=== PATIENT | male | born 1950 | race Caucasian/White ===

== ENCOUNTER → 2016-08-18 | Outpatient (CLI) | payer BC ==
[~2016-08-18] MED LIST: ACET-2178 PO; AMIKACIN IV; ASC250 PO; COR3 PO; DILT30TA38 PO; DOCU-138 PO; GABA600T PO; INSLIS SUBCUT; LACT10SO7 PO; LEVVL SUBCUT; LIDOCAINE HCL 1% 20ML VIAL (Pyxis) INJ ONE; Multivitamins,Ther W-Minerals PO; OR220 PO; SODIUM BICARBONATE 4.2% 5 MEQ/10 ML DISP.SYRIN IV ONE; TAMS0.4C31 PO; XAR15 PO
== END | disposition home or self-care (01) ==
LOC: RAD 14:43
PROVIDERS: ATTEND Internal Medicine Nephrology
DX: K65.1 Peritoneal abscess (principal); L02.211 Cutaneous abscess of abdominal wall
CPT/HCPCS: 77012; C1769; J3490

== ENCOUNTER 2017-02-21 11:45 | Inpatient (IN) | payer MEDICARE, BC ==
[~2017-02-21] VITALS: Ht 177.8 cm; Wt 111.6 kg
[~2017-02-21 11:45] MED LIST changes: -LIDOCAINE HCL 1% 20ML VIAL (Pyxis) INJ ONE; -SODIUM BICARBONATE 4.2% 5 MEQ/10 ML DISP.SYRIN IV ONE
[2017-02-21] MEDS ORDERED: SODIUM CHLORIDE 0.9% 500 ML IV ONE (13:36)
[2017-02-21 14:35] LABS: BASOPHILS % 0.5 % (0.0-2.0); EOSINOPHILS % 3.1 % (0.0-5.0); HEMATOCRIT. 34.3 % (42.0-52.0); HEMOGLOBIN. 11.1 g/dL (14.0-18.0); LYMPHOCYTES % 31.9 % (20.0-50.0); MEAN CORPUSCULAR HEMOGLOBIN 27.8 pg (28.0-32.0); MEAN CORPUSCULAR VOLUME 85.6 fL (80.0-94.0); MEAN PLATELET VOLUME 6.1 fl (7.4-10.4); NEUTROPHILS % 57.5 % (40.0-76.0); PLATELET 637 x1000/uL (130-400); RED BLOOD CELL COUNT 4.01 mill/uL (4.7-6.1); RED CELL DISTRIBUTION WIDTH 17.2 % (11.6-14.6)
[2017-02-21 14:38] LABS: GLUCOSE URINE NEGATIVE (NEGATIVE); KETONES URINE NEGATIVE (NEGATIVE); LEUKOCYTE ESTERASE URINE 3+ (NEGATIVE); NITRITE URINE NEGATIVE (NEGATIVE); OCCULT BLOOD URINE 3+ (NEGATIVE); PH URINE 5.5 (4.5-8.0); PROTEIN URINE 2+ (NEGATIVE); SPECIFIC GRAVITY URINE 1.015 (1.005-1.030); UROBILINOGEN URINE 0.2 E.U./dL (0.2-1.0)
[2017-02-21 14:40] LABS: CLARITY URINE TURBID (CLEAR); COLOR URINE YELLOW (YELLOW)
[2017-02-21] MEDS ORDERED: CEFTRIAXONE 1 G PREMIX 50 ML IV ONE (14:45)
[2017-02-21 14:50] LABS: CARBON DIOXIDE 12 mEq/L (21-32); CHLORIDE 102 mEq/L (98-107); CREATINE KINASE 16 IU/L (39-308); TROPONIN I < 0.02 ng/mL (0.00-0.04)
[2017-02-21 14:51] LABS: CREATINE KINASE MB FRACTION 0.7 ng/mL (0.5-3.6)
[2017-02-21] MEDS ORDERED: DEXTROSE 50% WATER 50ML SYRINGE IV ONE (15:00)
[2017-02-21] MEDS ORDERED: SODIUM BICARBONATE 8.4% 1 MEQ/ML 50ML SYR IV ONE (15:00)
[2017-02-21] MEDS ORDERED: INSULIN REGULAR (HUMULIN R) 300UNITS/3ML IV ONE (15:00)
[2017-02-21] MEDS ORDERED: CALCIUM CHLORIDE 1GM/10ML SYR IV ONE (15:00)
[2017-02-21 15:16] LABS: INR 1.2; PARTIAL THROMBOPLASTIN TIME 30.8 sec (23.4-31.0)
[2017-02-21 15:39] LABS: BG BASE EXCESS -13.6 mmol/L (-2.0-2.0); BG CARBOXYHEMOGLOBIN 0.3 % (0.5-1.5); BG DEOXYHEMOGLOBIN 2.5 % (0.0-5.0); BG FRACTION INSPIRED OXYGEN 21; BG HCO3 ACT 12.3 mmol/L (22.0-26.0); BG METHEMOGLOBIN 0.1 % (0.0-1.5); BG OXYGEN SATURATION 97.5 % (92.0-98.5); BG OXYHEMOGLOBIN 97.1 % (94.0-97.0); BG PCO2 29.2 mmHg (35.0-45.0); BG PH 7.243 (7.350-7.450); BG PO2 98.7 mmHg (75.0-100.0); BG SAMPLE SITE LEFT BRACHIAL; BG TOTAL HEMOGLOBIN 11.6 g/dL (12.0-18.0); BG VENT MODE ROOM AIR
[2017-02-21] MEDS ORDERED: SODIUM CHLORIDE 0.9% 1000ML BAG (SEPSIS BOLUS) IV ONE (15:45)
[2017-02-21 16:00] LABS: PHOSPHORUS 5.1 mg/dL (2.5-4.9)
[2017-02-21 16:13] LABS: AMMONIA 17 uMol/L (<32)
[2017-02-21] MEDS ORDERED: IPRATROPIUM/ALBUTEROL 0.5-3(2.5)MG/3ML NEB INH PRN (16:30)
[2017-02-21] MEDS ORDERED: CLONIDINE 0.1MG TABLET PO PRN (16:30)
[2017-02-21] MEDS ORDERED: ACETAMINOPHEN 325MG TABLET PO PRN (16:30)
[2017-02-21] MEDS ORDERED: HYDROCODONE/ACETAMINOPHEN 5/325MG TABLET PO PRN (16:30)
[2017-02-21] MEDS ORDERED: GUAIFENESIN 200MG/10ML SUGAR FREE UDC PO PRN (16:30)
[2017-02-21] MEDS ORDERED: DOCUSATE SODIUM 100MG CAPSULE PO PRN (16:30)
[2017-02-21] MEDS: SODIUM CHLORIDE 0.9% 1,000 ML IV SCH (20:58)
[2017-02-21] MEDS: MORPHINE SULFATE 2 MG/ML CPJ (NOT FOR IM USE) IV PRN (21:10)
[2017-02-21] MEDS: LORAZEPAM 2MG/ML CPJ IV PRN (21:10)
[2017-02-21 22:10] LABS: TOTAL IRON BINDING CAPACITY 234 ug/dL (250-450)
[2017-02-22] VITALS (11 sets, daily range): BP systolic 124–173; BP diastolic 61–85
[2017-02-22] MEDS: SODIUM CHLORIDE 0.9% 1,000 ML IV SCH ×2 (02:30→22:30)
[2017-02-22 07:33] LABS: BASOPHILS % 0.7 % (0.0-2.0); EOSINOPHILS % 6.2 % (0.0-5.0); HEMATOCRIT. 29.4 % (42.0-52.0); HEMOGLOBIN. 9.6 g/dL (14.0-18.0); LYMPHOCYTES % 29.4 % (20.0-50.0); MEAN CORPUSCULAR HEMOGLOBIN 27.4 pg (28.0-32.0); MEAN PLATELET VOLUME 6.1 fl (7.4-10.4); MONOCYTES % 11.6 % (2.0-8.0); NEUTROPHILS % 52.1 % (40.0-76.0); PLATELET 556 x1000/uL (130-400)
[2017-02-22 08:05] LABS: CARBON DIOXIDE 16 mEq/L (21-32); CHLORIDE 110 mEq/L (98-107)
[2017-02-22 08:08] LABS: HDL CHOLESTEROL 39 mg/dL (40-59); LDL CHOLESTEROL 67 mg/dL (5-100)
[2017-02-22] MEDS: AMLODIPINE 10MG TABLET PO SCH (09:02)
[2017-02-22] MEDS: ASPIRIN 81MG EC TABLET PO SCH (09:02)
[2017-02-22] MEDS ORDERED: FLUCONAZOLE IV SCH (13:00)
[2017-02-22] MEDS: CEFTRIAXONE 1 G PREMIX 50 ML IV SCH (14:24)
[2017-02-22] MEDS ORDERED: FLUCONAZOLE 100 MG/50ML BAG 50 ML IV SCH (15:00)
[2017-02-22] MEDS: LORAZEPAM 2MG/ML CPJ IV PRN (20:37)
[2017-02-22] MEDS: ONDANSETRON HCL 4MG/2ML VIAL IV PRN (20:37)
[2017-02-22] MEDS: CLOTRIMAZOLE 1% CREAM 30GM TOP SCH (20:38)
[2017-02-23] VITALS (12 sets, daily range): BP systolic 122–168; BP diastolic 52–99
[2017-02-23] MEDS: DIPHENHYDRAMINE 50MG/ML VIAL IV PRN ×2 (00:43→20:57)
[2017-02-23] MEDS: SODIUM CHLORIDE 0.9% 1,000 ML IV SCH ×3 (08:30→20:44)
[2017-02-23 09:26] LABS: BASOPHILS % 0.6 % (0.0-2.0); HEMATOCRIT. 33.5 % (42.0-52.0); HEMOGLOBIN. 10.9 g/dL (14.0-18.0); LYMPHOCYTES % 18.5 % (20.0-50.0); MEAN CORPUSCULAR HEMOGLOBIN 27.7 pg (28.0-32.0); MEAN CORPUSCULAR VOLUME 84.7 fL (80.0-94.0); MEAN PLATELET VOLUME 5.7 fl (7.4-10.4); MONOCYTES % 10.5 % (2.0-8.0); NEUTROPHILS % 67.4 % (40.0-76.0); PLATELET 619 x1000/uL (130-400); RED BLOOD CELL COUNT 3.95 mill/uL (4.7-6.1); RED CELL DISTRIBUTION WIDTH 17.6 % (11.6-14.6)
[2017-02-23] MEDS: AMLODIPINE 10MG TABLET PO SCH (09:29)
[2017-02-23] MEDS: ASPIRIN 81MG EC TABLET PO SCH (09:29)
[2017-02-23] MEDS: CLOTRIMAZOLE 1% CREAM 30GM TOP SCH ×2 (09:43→21:03)
[2017-02-23 09:50] LABS: CARBON DIOXIDE 18 mEq/L (21-32); CHLORIDE 113 mEq/L (98-107)
[2017-02-23] MEDS: ONDANSETRON HCL 4MG/2ML VIAL IV PRN ×2 (13:20→20:17)
[2017-02-23] MEDS: CEFTRIAXONE 1 G PREMIX 50 ML IV SCH (15:15)
[2017-02-23] MEDS: FLUCONAZOLE 200 MG/100ML BAG 100 ML IV SCH (16:49)
[2017-02-23] MEDS: FAMOTIDINE 20MG/2ML VIAL IV SCH (20:17)
[2017-02-23] MEDS: LORAZEPAM 2MG/ML CPJ IV PRN (22:13)
[2017-02-24] VITALS (10 sets, daily range): BP systolic 121–151; BP diastolic 62–81
[2017-02-24] MEDS: DIPHENHYDRAMINE 50MG/ML VIAL IV PRN ×2 (02:48→20:09)
[2017-02-24] MEDS: LORAZEPAM 2MG/ML CPJ IV PRN ×2 (05:17→19:41)
[2017-02-24] MEDS ORDERED: LIDOCAINE HCL 1% 20ML VIAL (Pyxis) INJ ONE (07:46)
[2017-02-24] MEDS: MORPHINE SULFATE 2 MG/ML CPJ (NOT FOR IM USE) IV PRN ×2 (08:30→20:09)
[2017-02-24] MEDS: FAMOTIDINE 20MG/2ML VIAL IV SCH ×2 (08:45→20:07)
[2017-02-24] MEDS: ASPIRIN 81MG EC TABLET PO SCH (08:55)
[2017-02-24] MEDS: AMLODIPINE 10MG TABLET PO SCH (08:56)
[2017-02-24] MEDS ORDERED: PANTOPRAZOLE SODIUM 40 MG/VIAL IV SCH (09:00)
[2017-02-24] MEDS: CLOTRIMAZOLE 1% CREAM 30GM TOP SCH ×2 (09:04→20:55)
[2017-02-24] MEDS: SODIUM CHLORIDE 0.9% 1,000 ML IV SCH (10:11)
[2017-02-24] MEDS: CEFTRIAXONE 1 G PREMIX 50 ML IV SCH (15:27)
[2017-02-24] MEDS: FLUCONAZOLE 200 MG/100ML BAG 100 ML IV SCH (16:54)
[2017-02-25] VITALS: BP 137/72
[2017-02-25] MEDS: LORAZEPAM 2MG/ML CPJ IV PRN ×2 (02:48→20:02)
[2017-02-25] MEDS: DIPHENHYDRAMINE 50MG/ML VIAL IV PRN (03:05)
[2017-02-25 04:00] VITALS: BP 149/87
[2017-02-25] MEDS: MORPHINE SULFATE 2 MG/ML CPJ (NOT FOR IM USE) IV PRN (05:07)
[2017-02-25] MEDS: CLOTRIMAZOLE 1% CREAM 30GM TOP SCH ×2 (09:00→21:43)
[2017-02-25] MEDS: AMLODIPINE 10MG TABLET PO SCH (09:00)
[2017-02-25] MEDS: FAMOTIDINE 20MG/2ML VIAL IV SCH ×2 (09:00→20:14)
[2017-02-25] MEDS: ASPIRIN 81MG EC TABLET PO SCH (09:00)
[2017-02-25 12:00] VITALS: BP 121/64
[2017-02-25] MEDS: CEFTRIAXONE 1 G PREMIX 50 ML IV SCH (14:30)
[2017-02-25 16:00] VITALS: BP 132/74
[2017-02-25] MEDS: FLUCONAZOLE 200 MG/100ML BAG 100 ML IV SCH (17:01)
[2017-02-25 20:00] VITALS: BP 142/82
[2017-02-25 22:00] VITALS: BP 149/76
[2017-02-26] VITALS: BP 122/70
[2017-02-26 01:00] VITALS: BP 137/75
[2017-02-26] MEDS: LORAZEPAM 2MG/ML CPJ IV PRN ×2 (03:50→21:14)
[2017-02-26 04:00] VITALS: BP 123/64
[2017-02-26 07:14] LABS: AMMONIA 18 uMol/L (<32)
[2017-02-26 07:20] LABS: BASOPHILS % 0.5 % (0.0-2.0); EOSINOPHILS % 3.8 % (0.0-5.0); HEMATOCRIT. 29.9 % (42.0-52.0); HEMOGLOBIN. 9.5 g/dL (14.0-18.0); LYMPHOCYTES % 28.1 % (20.0-50.0); MEAN CORPUSCULAR HEMOGLOBIN 27.1 pg (28.0-32.0); MEAN CORPUSCULAR VOLUME 85.1 fL (80.0-94.0); MEAN PLATELET VOLUME 5.9 fl (7.4-10.4); MONOCYTES % 9.1 % (2.0-8.0); NEUTROPHILS % 58.5 % (40.0-76.0); PLATELET 497 x1000/uL (130-400); RED BLOOD CELL COUNT 3.51 mill/uL (4.7-6.1); RED CELL DISTRIBUTION WIDTH 17.9 % (11.6-14.6)
[2017-02-26 07:47] LABS: CHLORIDE 113 mEq/L (98-107)
[2017-02-26 07:56] LABS: CARBON DIOXIDE 19 mEq/L (21-32)
[2017-02-26 08:00] VITALS: BP 124/65
[2017-02-26] MEDS: FAMOTIDINE 20MG/2ML VIAL IV SCH ×2 (09:29→21:24)
[2017-02-26] MEDS: ASPIRIN 81MG EC TABLET PO SCH (09:29)
[2017-02-26] MEDS: CLOTRIMAZOLE 1% CREAM 30GM TOP SCH ×2 (09:29→21:25)
[2017-02-26] MEDS: AMLODIPINE 10MG TABLET PO SCH (09:29)
[2017-02-26 12:00] VITALS: BP 132/64
[2017-02-26] MEDS: CEFTRIAXONE 1 G PREMIX 50 ML IV SCH (14:30)
[2017-02-26] MEDS: FLUCONAZOLE 200 MG/100ML BAG 100 ML IV SCH (15:48)
[2017-02-26 16:00] VITALS: BP 128/74
[2017-02-27] VITALS: BP_SYST 137; BP_SYST 169; BP_DIAS 66; BP_DIAS 79
[2017-02-27] MEDS: LORAZEPAM 2MG/ML CPJ IV PRN (01:29)
[2017-02-27 04:00] VITALS: BP 144/81
[2017-02-27 08:00] VITALS: BP 123/75
[2017-02-27] MEDS: FAMOTIDINE 20MG/2ML VIAL IV SCH ×2 (09:26→21:58)
[2017-02-27] MEDS: ASPIRIN 81MG EC TABLET PO SCH (09:26)
[2017-02-27] MEDS: AMLODIPINE 10MG TABLET PO SCH (09:26)
[2017-02-27] MEDS: CLOTRIMAZOLE 1% CREAM 30GM TOP SCH ×2 (11:33→21:59)
[2017-02-27 12:00] VITALS: BP 150/84
[2017-02-27] MEDS: CEFTRIAXONE 1 G PREMIX 50 ML IV SCH (14:13)
[2017-02-27 16:00] VITALS: BP 141/78
[2017-02-27] MEDS: ONDANSETRON HCL 4MG/2ML VIAL IV PRN ×2 (16:09→23:20)
[2017-02-27] MEDS: FLUCONAZOLE 200 MG/100ML BAG 100 ML IV SCH (17:20)
[2017-02-27 17:58] LABS: VITAMIN B12 SERUM 707 pg/mL (211-911)
[2017-02-27] MEDS ORDERED: DEXTROSE 50% WATER 50ML SYRINGE IV PRN (18:00)
[2017-02-27] MEDS: LEVOFLOXACIN 500MG PREMIX 100 ML IV SCH (18:33)
[2017-02-27 20:00] VITALS: BP 121/71
[2017-02-27] MEDS: BLOOD SUGAR DIAGNOSTIC STRIP TEST SCH (21:00)
[2017-02-27] MEDS: INSULIN LISPRO 100 UNITS/ML SUBCUT SCH (22:02)
[2017-02-28] VITALS: BP 127/75
[2017-02-28 04:00] VITALS: BP 134/78
[2017-02-28] MEDS: INSULIN LISPRO 100 UNITS/ML SUBCUT SCH ×4 (06:23→20:37)
[2017-02-28] MEDS: BLOOD SUGAR DIAGNOSTIC STRIP TEST SCH ×4 (06:24→20:32)
[2017-02-28 08:00] VITALS: BP 140/78
[2017-02-28] MEDS: CLOTRIMAZOLE 1% CREAM 30GM TOP SCH ×2 (08:34→20:38)
[2017-02-28] MEDS: AMLODIPINE 10MG TABLET PO SCH (08:34)
[2017-02-28] MEDS: ASPIRIN 81MG EC TABLET PO SCH (08:34)
[2017-02-28] MEDS: FAMOTIDINE 20MG/2ML VIAL IV SCH ×2 (08:34→20:37)
[2017-02-28] MEDS: ONDANSETRON HCL 4MG/2ML VIAL IV PRN (10:44)
[2017-02-28 12:00] VITALS: BP 149/83
[2017-02-28 16:00] VITALS: BP 136/80
[2017-02-28] MEDS: LEVOFLOXACIN 500MG PREMIX 100 ML IV SCH (17:14)
[2017-02-28] MEDS: FLUCONAZOLE 200MG TABLET PO SCH (17:14)
[2017-02-28] MEDS ORDERED: MAGNESIUM 1 G PREMIX 100 ML IV NR (18:30)
[2017-02-28 20:00] VITALS: BP 128/78
[2017-03-01] VITALS: BP 140/81
[2017-03-01 08:00] VITALS: BP 134/78
[2017-03-01 09:08] LABS: CARBON DIOXIDE 23 mEq/L (21-32); CHLORIDE 105 mEq/L (98-107)
[2017-03-01] MEDS: ASPIRIN 81MG EC TABLET PO SCH (09:17)
[2017-03-01] MEDS: FAMOTIDINE 20MG/2ML VIAL IV SCH ×2 (09:17→22:51)
[2017-03-01] MEDS: ONDANSETRON HCL 4MG/2ML VIAL IV PRN (09:17)
[2017-03-01] MEDS: FLUCONAZOLE 200MG TABLET PO SCH (09:17)
[2017-03-01] MEDS: AMLODIPINE 10MG TABLET PO SCH (09:18)
[2017-03-01 10:17] LABS: BASOPHILS % 0.6 % (0.0-2.0); EOSINOPHILS % 3.4 % (0.0-5.0); HEMATOCRIT. 32.3 % (42.0-52.0); HEMOGLOBIN. 10.4 g/dL (14.0-18.0); LYMPHOCYTES % 22.3 % (20.0-50.0); MEAN CORPUSCULAR HEMOGLOBIN 27.6 pg (28.0-32.0); MEAN CORPUSCULAR VOLUME 85.8 fL (80.0-94.0); MEAN PLATELET VOLUME 6.5 fl (7.4-10.4); NEUTROPHILS % 63.7 % (40.0-76.0); PLATELET 444 x1000/uL (130-400); RED BLOOD CELL COUNT 3.77 mill/uL (4.7-6.1); RED CELL DISTRIBUTION WIDTH 17.4 % (11.6-14.6)
[2017-03-01 12:00] VITALS: BP 141/86
[2017-03-01] MEDS: BLOOD SUGAR DIAGNOSTIC STRIP TEST SCH ×3 (12:28→21:00)
[2017-03-01] MEDS: INSULIN LISPRO 100 UNITS/ML SUBCUT SCH ×3 (13:08→22:50)
[2017-03-01 16:20] VITALS: BP 130/75
[2017-03-01] MEDS: LEVOFLOXACIN 500MG PREMIX 100 ML IV SCH (17:04)
[2017-03-01 20:00] VITALS: BP 127/76
[2017-03-01] MEDS: CLOTRIMAZOLE 1% CREAM 30GM TOP SCH ×2 (22:51→22:53)
[2017-03-02] VITALS: BP 126/79
[2017-03-02 04:00] VITALS: BP 136/77
[2017-03-02] MEDS: INSULIN LISPRO 100 UNITS/ML SUBCUT SCH ×4 (07:05→21:35)
[2017-03-02 08:00] VITALS: BP 138/79
[2017-03-02] MEDS: FAMOTIDINE 20MG/2ML VIAL IV SCH ×2 (09:56→21:34)
[2017-03-02] MEDS: AMLODIPINE 10MG TABLET PO SCH (09:57)
[2017-03-02] MEDS: CLOTRIMAZOLE 1% CREAM 30GM TOP SCH ×2 (09:58→21:34)
[2017-03-02] MEDS: ASPIRIN 81MG EC TABLET PO SCH (09:58)
[2017-03-02] MEDS: FLUCONAZOLE 200MG TABLET PO SCH (09:58)
[2017-03-02 12:00] VITALS: BP 145/80
[2017-03-02] MEDS: BLOOD SUGAR DIAGNOSTIC STRIP TEST SCH ×3 (12:30→21:00)
[2017-03-02 16:00] VITALS: BP 124/75
[2017-03-02] MEDS: LEVOFLOXACIN 500MG PREMIX 100 ML IV SCH (17:59)
[2017-03-02 20:00] VITALS: BP 129/76
[2017-03-03] VITALS: BP 144/80
[2017-03-03 04:00] VITALS: BP 126/71
[2017-03-03] MEDS: BLOOD SUGAR DIAGNOSTIC STRIP TEST SCH ×4 (05:58→20:57)
[2017-03-03] MEDS: INSULIN LISPRO 100 UNITS/ML SUBCUT SCH ×4 (06:32→20:56)
[2017-03-03 08:00] VITALS: BP 135/75
[2017-03-03] MEDS: FAMOTIDINE 20MG/2ML VIAL IV SCH ×2 (09:08→20:56)
[2017-03-03] MEDS: AMLODIPINE 10MG TABLET PO SCH (09:09)
[2017-03-03] MEDS: ASPIRIN 81MG EC TABLET PO SCH (09:09)
[2017-03-03] MEDS: CLOTRIMAZOLE 1% CREAM 30GM TOP SCH ×2 (10:44→20:56)
[2017-03-03] MEDS: ONDANSETRON HCL 4MG/2ML VIAL IV PRN (10:44)
[2017-03-03 11:04] LABS: EOSINOPHILS % 4.5 % (0.0-5.0); HEMOGLOBIN. 10.3 g/dL (14.0-18.0); MEAN CORPUSCULAR HEMOGLOBIN 27.3 pg (28.0-32.0); MEAN CORPUSCULAR VOLUME 84.8 fL (80.0-94.0); MEAN PLATELET VOLUME 6.7 fl (7.4-10.4); MONOCYTES % 9.1 % (2.0-8.0); NEUTROPHILS % 55.4 % (40.0-76.0); PLATELET 464 x1000/uL (130-400); RED BLOOD CELL COUNT 3.78 mill/uL (4.7-6.1); RED CELL DISTRIBUTION WIDTH 17.3 % (11.6-14.6)
[2017-03-03 12:00] VITALS: BP 126/71
[2017-03-03 16:00] VITALS: BP 127/63
[2017-03-03] MEDS: LEVOFLOXACIN 500MG PREMIX 100 ML IV SCH (17:59)
[2017-03-03 20:00] VITALS: BP 141/76
[2017-03-04] VITALS: BP 107/70
[2017-03-04 04:00] VITALS: BP 130/61
[2017-03-04] MEDS: BLOOD SUGAR DIAGNOSTIC STRIP TEST SCH ×4 (07:14→20:42)
[2017-03-04] MEDS: INSULIN LISPRO 100 UNITS/ML SUBCUT SCH ×4 (07:15→20:45)
[2017-03-04 07:44] LABS: CARBON DIOXIDE 25 mEq/L (21-32); CHLORIDE 102 mEq/L (98-107)
[2017-03-04 07:59] LABS: BASOPHILS % 0.9 % (0.0-2.0); EOSINOPHILS % 4.9 % (0.0-5.0); HEMATOCRIT. 32.5 % (42.0-52.0); HEMOGLOBIN. 10.6 g/dL (14.0-18.0); LYMPHOCYTES % 32.9 % (20.0-50.0); MEAN CORPUSCULAR HEMOGLOBIN 27.7 pg (28.0-32.0); MEAN CORPUSCULAR VOLUME 84.9 fL (80.0-94.0); MEAN PLATELET VOLUME 6.7 fl (7.4-10.4); MONOCYTES % 9.9 % (2.0-8.0); NEUTROPHILS % 51.4 % (40.0-76.0); PLATELET 471 x1000/uL (130-400); RED BLOOD CELL COUNT 3.83 mill/uL (4.7-6.1); RED CELL DISTRIBUTION WIDTH 16.8 % (11.6-14.6)
[2017-03-04] MEDS: AMLODIPINE 10MG TABLET PO SCH (09:30)
[2017-03-04] MEDS: ASPIRIN 81MG EC TABLET PO SCH (09:30)
[2017-03-04] MEDS: CLOTRIMAZOLE 1% CREAM 30GM TOP SCH ×2 (09:30→20:42)
[2017-03-04] MEDS: FAMOTIDINE 20MG/2ML VIAL IV SCH ×2 (09:30→20:41)
[2017-03-04 12:00] VITALS: BP 124/79
[2017-03-04 16:00] VITALS: BP 128/75
[2017-03-04] MEDS: LEVOFLOXACIN 500MG PREMIX 100 ML IV SCH (17:35)
[2017-03-04 17:47] LABS: CLARITY URINE TURBID (CLEAR); COLOR URINE YELLOW (YELLOW); GLUCOSE URINE NEGATIVE (NEGATIVE); KETONES URINE TRACE (NEGATIVE); LEUKOCYTE ESTERASE URINE 3+ (NEGATIVE); NITRITE URINE NEGATIVE (NEGATIVE); OCCULT BLOOD URINE 2+ (NEGATIVE); PROTEIN URINE 2+ (NEGATIVE); SPECIFIC GRAVITY URINE 1.019 (1.005-1.030); UROBILINOGEN URINE 0.2 E.U./dL (0.2-1.0)
[2017-03-04 20:00] VITALS: BP 134/76
[2017-03-04] MEDS: RISPERIDONE 0.5MG TABLET PO SCH (22:12)
[2017-03-05] VITALS: BP 128/64
[2017-03-05 04:00] VITALS: BP 131/73
[2017-03-05] MEDS: BLOOD SUGAR DIAGNOSTIC STRIP TEST SCH ×2 (06:32→12:19)
[2017-03-05] MEDS: INSULIN LISPRO 100 UNITS/ML SUBCUT SCH ×2 (06:39→13:07)
[2017-03-05 08:00] VITALS: BP 126/73
[2017-03-05] MEDS: RISPERIDONE 0.5MG TABLET PO SCH (09:00)
[2017-03-05] MEDS: FAMOTIDINE 20MG/2ML VIAL IV SCH (09:58)
[2017-03-05] MEDS: CLOTRIMAZOLE 1% CREAM 30GM TOP SCH (10:14)
[2017-03-05] MEDS: ASPIRIN 81MG EC TABLET PO SCH (10:14)
[2017-03-05] MEDS: AMLODIPINE 10MG TABLET PO SCH (10:14)
[2017-03-05 12:00] VITALS: BP 132/78
[2017-03-05] MEDS ORDERED: LEVOFLOXACIN 500MG TABLET PO SCH (13:00)
[2017-03-05 15:46] VITALS: BP 134/72
[2017-03-05 16:00] VITALS: BP 130/74
== END 2017-03-05 16:40 | disposition home or self-care (01) | DRG 871 ==
LOC: ER 11:58 → 5EST 14:04 → EDBEDREQ 15:04 → EDBEDREQSVC 15:04 → EDBEDREQ 15:41 → ENRESERV 02-22 00:40 → 5WST 02-26 23:34
PROVIDERS: ADMIT Hospitalist; ATTEND Hospitalist
PROC: 02HV33Z Insertion of Infusion Device into Superior Vena Cava, Percutaneous Approach (ICD-10-PCS; principal; 2017-02-24)
PROC: B548ZZA Ultrasonography of Superior Vena Cava, Guidance (ICD-10-PCS; 2017-02-24)
DX: A41.9 Sepsis, unspecified organism (principal); E43 Unspecified severe protein-calorie malnutrition; N17.0 Acute kidney failure with tubular necrosis; G93.40 Encephalopathy, unspecified; C85.90 Non-Hodgkin lymphoma, unspecified, unspecified site; E11.22 Type 2 diabetes mellitus with diabetic chronic kidney disease; E87.1 Hypo-osmolality and hyponatremia; N39.0 Urinary tract infection, site not specified; N13.30 Unspecified hydronephrosis; I12.9 Hypertensive chronic kidney disease with stage 1 through stage 4 chronic kidney disease, or unspecified chronic kidney disease; N18.9 Chronic kidney disease, unspecified; D63.8 Anemia in other chronic diseases classified elsewhere; E87.5 Hyperkalemia; F91.9 Conduct disorder, unspecified; R62.7 Adult failure to thrive; Z86.718 Personal history of other venous thrombosis and embolism; Z91.19 Patient's noncompliance with other medical treatment and regimen; Z79.899 Other long term (current) drug therapy; Z79.4 Long term (current) use of insulin; Z68.35 Body mass index [BMI] 35.0-35.9, adult
CPT/HCPCS: 36415; 36569; 36600; 70450; 70551; 71010; 74176; 76770; 76937; 80048; 80053; 80061; 81001; 82140; 82375; 82550; 82553; 82607; 82805; 82962; 83540; 83550; 83605; 83690; 83735; 84100; 84153; 84443; 84484; 85025; 85610; 85730; 87040; 87070; 87077; 87086; 87106; 87186; 93005; 93306; 93970; 96361; 96365; 96375; 97162; 97530; 99291; A6261; C1725; C1893; J0696; J1200; J1450; J1815; J1956; J2060; J2270; J2405; J3475; J3490; J7030; J7040; A4315

== ENCOUNTER 2018-06-14 15:23 | Emergency (ER) | payer BC, MEDICARE ==
[~2018-06-14] VITALS: Ht 182.9 cm; Wt 112.0 kg
[2018-06-14 19:02] LABS: BASOPHILS % 0.7 % (0.0-2.0); EOSINOPHILS % 4.5 % (0.0-5.0); HEMATOCRIT. 27.8 % (42.0-52.0); HEMOGLOBIN. 9.2 g/dL (14.0-18.0); LYMPHOCYTES % 43.5 % (20.0-50.0); MEAN CORPUSCULAR HEMOGLOBIN 30.9 pg (28.0-32.0); MEAN CORPUSCULAR VOLUME 93.3 fL (80.0-94.0); MEAN PLATELET VOLUME 6.3 fl (7.4-10.4); MONOCYTES % 12.5 % (2.0-8.0); NEUTROPHILS % 38.8 % (40.0-76.0); PLATELET 504 x1000/uL (130-400); RED BLOOD CELL COUNT 2.97 mill/uL (4.7-6.1); RED CELL DISTRIBUTION WIDTH 16.1 % (11.6-14.6)
[2018-06-14 19:07] LABS: CHLORIDE 106 mEq/L (98-107)
[2018-06-14] MEDS ORDERED: CEFTRIAXONE 1 G PREMIX 50 ML IV ONE (19:30)
[2018-06-14 20:19] VITALS: BP 147/74
[2018-06-14 21:08] LABS: CLARITY URINE TURBID (CLEAR); COLOR URINE YELLOW (YELLOW); KETONES URINE TRACE (NEGATIVE); LEUKOCYTE ESTERASE URINE 3+ (NEGATIVE); NITRITE URINE NEGATIVE (NEGATIVE); OCCULT BLOOD URINE 3+ (NEGATIVE); PH URINE 5.5 (4.5-8.0); PROTEIN URINE 3+ (NEGATIVE); SPECIFIC GRAVITY URINE 1.016 (1.005-1.030); UROBILINOGEN URINE 0.2 E.U./dL (0.2-1.0)
== END 2018-06-14 20:20 | disposition left against medical advice (07) ==
LOC: ER 15:23
DX: T83.028A Displacement of other urinary catheter, initial encounter (principal); Y84.6 Urinary catheterization as the cause of abnormal reaction of the patient, or of later complication, without mention of misadventure at the time of the procedure; Y92.098 Other place in other non-institutional residence as the place of occurrence of the external cause; N17.9 Acute kidney failure, unspecified; N39.0 Urinary tract infection, site not specified; E11.65 Type 2 diabetes mellitus with hyperglycemia; D64.9 Anemia, unspecified; Z79.4 Long term (current) use of insulin; Z79.899 Other long term (current) drug therapy
CPT/HCPCS: 36415; 51702; 71045; 83880; 87077; 87186; 93005; 99284

== ENCOUNTER 2018-08-21 14:12 | Emergency (ER) | payer MEDICARE ==
[~2018-08-21] VITALS: Ht 182.9 cm; Wt 113.0 kg
[2018-08-21] MEDS ORDERED: ONDANSETRON 4MG ODT PO STA (15:40)
[2018-08-21 16:04] LABS: HEMATOCRIT. 35.5 % (42.0-52.0); HEMOGLOBIN. 11.8 g/dL (14.0-18.0); MEAN CORPUSCULAR HEMOGLOBIN 30.5 pg (28.0-32.0); MEAN CORPUSCULAR VOLUME 91.9 fL (80.0-94.0); MEAN PLATELET VOLUME 7.4 fl (7.4-10.4); PLATELET 488 x1000/uL (130-400); RED BLOOD CELL COUNT 3.86 mill/uL (4.7-6.1); RED CELL DISTRIBUTION WIDTH 16.3 % (11.6-14.6)
[2018-08-21 16:12] LABS: CHLORIDE 103 mEq/L (98-107)
[2018-08-21 16:27] LABS: PLATELET ESTIMATE INCREASED
[2018-08-21] MEDS ORDERED: INSULIN REGULAR (HUMULIN R) 300UNITS/3ML SUBCUT ONE (18:45)
[2018-08-21 18:51] LABS: CLARITY URINE TURBID (CLEAR); COLOR URINE YELLOW (YELLOW); KETONES URINE 1+ (NEGATIVE); LEUKOCYTE ESTERASE URINE 1+ (NEGATIVE); NITRITE URINE NEGATIVE (NEGATIVE); OCCULT BLOOD URINE 2+ (NEGATIVE); PH URINE 5.5 (4.5-8.0); PROTEIN URINE 4+ (NEGATIVE); SPECIFIC GRAVITY URINE 1.024 (1.005-1.030); UROBILINOGEN URINE 0.2 E.U./dL (0.2-1.0)
[2018-08-21 21:46] VITALS: BP 130/97
[2018-08-21] MEDS ORDERED: ONDANSETRON 4MG ODT PO ONE (22:15)
== END 2018-08-21 22:15 | disposition home or self-care (01) ==
LOC: ER 14:12
DX: E11.65 Type 2 diabetes mellitus with hyperglycemia (principal); K29.70 Gastritis, unspecified, without bleeding; I10 Essential (primary) hypertension; Z79.4 Long term (current) use of insulin; Z96.659 Presence of unspecified artificial knee joint
CPT/HCPCS: 36415; 74021; 74176; 80053; 81003; 82962; 83690; 85025; 87077; 87086; 87186; 93005; 96372; 99284; J1815; Q0162